=== PATIENT | male | born 1955 | race Two or more races ===

== ENCOUNTER 2017-07-10 20:18 | Emergency (ER) | payer OTHER ==
[~2017-07-10] VITALS: Ht 175.3 cm; Wt 79.4 kg
[2017-07-10 21:30] VITALS: BP 131/82
--- NOTE | 2017-07-10 22:10 | Emergency Room Report ---
History of Present Illness General Chief Complaint: Constipation Source: Family Member Present Illness HPI [id number] walk-in with family members with fluctuating mental status for 2 weeks Known Hep C. Daughter states finished tx for Hep C when hepatitis C level became undetectable Has taken lactulose before, not currently. Ammonia level checked "a couple days ago" by PMD's lab - daughter logged in and saw it was "normal" but they are frustrated by lack of actual PMD followup, difficulty making office visit. Daughter currently trying to "find another primary care doctor." She states father has difficulty with "execution of actions." Doesnt want to eat but c/o constipation for 2 days Denies vomiting, fever/chills, diarrhea Patient himself has no complaints Allergies: Coded Allergies: No Known Allergies (Unverified , 07/10/17) Patient History Past Medical History: other - HepC Past Surgical History: none Pertinent Family History: none Social History: Denies: alcohol use, drug use, smoking Immunizations: UTD Reviewed Nursing Documentation: PMH: Agreed, PSxH: Agreed Nursing Documentation-PMH Hx Gastrointestinal Problems: Yes - HISTORY OF HEP C History Of Psychiatric Problem: Yes - ANXIETY Review of Systems All Other Systems: negative except mentioned in HPI Physical Exam Vital Signs Date Time Temp Pulse Resp B/P Pulse Ox O2 Delivery O2 Flow Rate FiO2 07/10/17 20:57 97.9 75 16 131/82 98 Room Air Sp02 EP Interpretation: reviewed, normal General Appearance: normal inspection, well appearing, no apparent distress, alert, GCS 15, non-toxic Head: normocephalic, atraumatic Eyes: bilateral eye EOMI, bilateral eye PERRL ENT: normal ENT inspection, hearing grossly normal, normal voice Neck: normal inspection, full range of motion, supple, no bony tend Respiratory: normal inspection, lungs clear, normal breath sounds, no respiratory distress, no retraction, no wheezing Cardiovascular #1: regular rate, rhythm, no edema Gastrointestinal: normal inspection, normal bowel sounds, non tender, soft, no guarding, no hernia Genitourinary: no CVA tenderness Musculoskeletal: normal inspection, back normal, normal range of motion, Jonas' s Sign negative Neurologic: normal inspection, alert, oriented x3, responsive, farm[employer] III-XII nml as tested, motor strength/tone normal, speech normal Psychiatric: normal inspection, judgement/insight normal, mood/affect normal Skin: normal inspection, normal color, no rash Medical Decision Making Diagnostic Impression: Primary Impression: Altered mental status Qualified Codes: R41.82 - Altered mental status, unspecified ER Course AMS VSS. Afebrile Ammonia level WNL No leuks. H&h stable. Mild total bili elevation. UA and CXR negative for infection Patient's abd exam not cw/ constipation. He has also not been eating Daughter states that patient's mental state was "better" when he was taking lactulose but was told by director of institutional giving to stop 1 month ago. I provided new GI referral for Dr Amato I suggested trial of Lactulose for 1 week to see if mental status improves, also because ammonia level known to NOT correlate with encephalopathy or lack thereof No other signs of serious illness/sepsis requiring admission at this time Will Dc home EKG Diagnostic Results Rate: normal Rhythm: NSR ST Segments: no acute changes ASA given to the pt in ED: No Rhythm Strip Diag. Results EP Interpretation: yes Rate: 64 Rhythm: NSR, no PVC's, no ectopy Chest X-Ray Diagnostic Results Chest X-Ray Diagnostic Results : Chest X-Ray Ordered: Yes # of Views/Limited/Complete: 1 View Indication: Other - AMS EP Interpretation: Yes Interpretation: no consolidation, no effusion, no pneumothorax, no acute cardiopulmonary disease Impression: No acute disease Interpreting ER Provider: Dr Glory Brown MD Last Vital Signs Date Time Temp Pulse Resp B/P Pulse Ox O2 Delivery O2 Flow Rate FiO2 07/10/17 20:57 97.9 75 16 131/82 98 Room Air Status: improved Disposition: HOME, SELF-CARE Condition: Improved Scripts Lactulose (LACTULOSE*) 20 Gm/30 Ml Solution 30 ML ORAL once daily for 7 Days, #1 UNIT 0 Refills Prov: GLORY BROWN M.D. 07/11/17 GLORY BROWN M.D. Jul 10, 2017 22:10
[2017-07-11 00:35] LABS: BASOPHILS % (AUTO) 1.6 % (0.0-2.0); EOSINOPHILS % (AUTO) 7.1 % (0.0-3.0); LYMPHOCYTES % (AUTO) 43.9 % (20.0-45.0); MEAN CORPUSCULAR HGB CONC 36.4 G/DL (32.0-36.0); MEAN CORPUSCULAR VOLUME 93 FL (80-99); MEAN PLATELET VOLUME 9.9 FL (6.5-10.1); MONOCYTES % (AUTO) 7.8 % (1.0-10.0); NEUTROPHILS % (AUTO) 39.7 % (45.0-75.0); PLATELET COUNT 171 K/UL (150-450); RED BLOOD COUNT 4.19 M/UL (4.70-6.10); RED CELL DISTRIBUTION WIDTH 12.8 % (11.6-14.8)
[2017-07-11 01:03] LABS: APPEARANCE,URINE CLEAR; KETONES,URINE NEGATIVE (NEGATIVE); LEUKOCYTE ESTERASE ,URINE NEGATIVE (NEGATIVE); NITRITE,URINE NEGATIVE (NEGATIVE); PH,URINE 5 (4.5-8.0); PROTEIN,URINE NEGATIVE (NEGATIVE); UROBILINOGEN,URINE 1 MG/DL (0.0-1.0)
[2017-07-11 01:23] LABS: ALANINE AMINOTRANSFERASE 31 U/L (3-41); ALBUMIN/GLOBULIN RATIO 1.7 (1.0-2.7); ANION GAP 10 (5-15); ASPARTATE AMINO TRANSFERASE 30 U/L (5-40); CALCIUM 9.7 mg/dL (8.6-10.2); CARBON DIOXIDE 27 mEQ/L (20-30); CHLORIDE 101 mEQ/L (98-107); CREATININE 0.9 mg/dL (0.7-1.2); GLOMERULAR FILTRATION RATE > 60 mL/min (>60); HEMOLYSIS 8; POTASSIUM 3.8 mEQ/L (3.4-4.9); SODIUM 138 mEQ/L (135-145); TOTAL PROTEIN 6.9 g/dL (6.6-8.7)
[2017-07-11 01:25] LABS: TROPONIN I < 0.30 ng/mL (<=0.30)
[2017-07-11 01:34] LABS: CKMB 1.7 ng/mL (< 6.7)
[2017-07-11 01:45] LABS: BILIRUBIN,DIRECT 0.3 mg/dL (0.1-0.3)
[2017-07-11 02:00] VITALS: BP 142/85
[2017-07-11] MEDS ORDERED: LACTULOSE20 GM/301 ORAL (02:01)
[2017-07-11 02:08] VITALS: BP 146/80
--- NOTE | 2017-07-11 09:13 | Diagnostic Imaging Report ---
Indication: Shortness of breath Technique: XRAY CHEST 1 V Comparison: None Findings: Cardiomediastinal silhouette is within normal limits. There is no consolidation or pleural effusion. Osseous structures demonstrate no acute abnormality. Impression: No acute cardiopulmonary disease.
--- NOTE | 2017-07-13 08:18 | Cardiology Report ---
APPROVED REPORT EKG Measurement Heart [id number] MD [id number] Normal sinus rhythm Normal ECG
== END 2017-07-11 02:10 | disposition home or self-care (01) ==
LOC: EMR 20:55 → EDBEDREQ 07-11 01:11 → EMR 07-11 02:10
DX: R41.82 Altered mental status, unspecified (principal); Z86.19 Personal history of other infectious and parasitic diseases
CPT/HCPCS: 36415; 71010; 80053; 81003; 82140; 82248; 82550; 82553; 83605; 84484; 85025; 87040; 93005; 99283